=== PATIENT | female | born 1955 | race Two or more races ===

== ENCOUNTER 2021-01-31 22:19 | Inpatient (IN) | payer MEDICAID ==
[~2021-01-31] VITALS: Ht 162.6 cm; Wt 69.4 kg
[2021-01-31] MEDS ORDERED: SODIUM CHLORIDE 0.9% 1,000 ML IV ONE (23:00)
[2021-01-31 23:27] LABS: BG BASE EXCESS 4.7 mmol/L (-2.0-2.0); BG CARBOXYHEMOGLOBIN 0.8 % (0.5-1.5); BG DEOXYHEMOGLOBIN 7.3 % (0.0-5.0); BG HCO3 ACT 27.8 mmol/L (22.0-26.0); BG METHEMOGLOBIN 0.4 % (0.0-1.5); BG OXYGEN SATURATION 92.6 % (92.0-98.5); BG OXYHEMOGLOBIN 91.5 % (94.0-97.0); BG PCO2 36.4 mmHg (35.0-45.0); BG PH 7.501 (7.350-7.450); BG PO2 63.3 mmHg (75.0-100.0); BG SAMPLE SITE RIGHT RADIAL; BG TOTAL HEMOGLOBIN 16.2 g/dL (12.0-18.0); BG VENT MODE ROOM AIR
[2021-01-31 23:53] LABS: BASOPHILS % 0.5 % (0.0-2.0); EOSINOPHILS % 1.8 % (0.0-5.0); HEMATOCRIT. 50.7 % (36.0-48.0); HEMOGLOBIN. 16.2 g/dL (12.0-16.0); LYMPHOCYTES % 15.7 % (20.0-50.0); MEAN CORPUSCULAR HEMOGLOBIN 28.7 pg (28.0-32.0); MEAN CORPUSCULAR VOLUME 89.9 fL (81.0-99.0); MONOCYTES % 8.6 % (2.0-8.0); NEUTROPHILS % 73.4 % (40.0-76.0); PLATELET 442 x1000/uL (130-400); RED BLOOD CELL COUNT 5.65 mill/uL (4.2-5.4); RED CELL DISTRIBUTION WIDTH 13.6 % (11.6-14.6)
[2021-02-01] VITALS (13 sets, daily range): BP systolic 117–133; BP diastolic 67–88
[2021-02-01 00:01] LABS: INR 1.1; PROTHROMBIN TIME 11.4 sec (9.6-11.0)
[2021-02-01 01:03] LABS: CHLORIDE 96 mEq/L (98-107)
[2021-02-01] MEDS ORDERED: INSULIN REGULAR (HUMULIN R) 300UNITS/3ML VIAL IV NR (02:00)
[2021-02-01] MEDS ORDERED: CALCIUM GLUCONATE 100MG/ML 10ML VIAL IV NR (02:15)
[2021-02-01] MEDS ORDERED: METO-396 MT (06:35)
[2021-02-01] MEDS ORDERED: VIT1TABL62 PO (06:38)
[2021-02-01] MEDS ORDERED: LISI-186 MT (06:38)
[2021-02-01] MEDS ORDERED: LOVA10TA54 MT (06:38)
[2021-02-01] MEDS ORDERED: ABAC300T9 MT (06:38)
[2021-02-01] MEDS ORDERED: NON FORMULARY PATIENT HOME MED XX SCH (06:45)
[2021-02-01] MEDS ORDERED: DEXTROSE 50% WATER 50ML SYRINGE IV PRN ×2 (07:30→21:00)
[2021-02-01] MEDS: BLOOD SUGAR DIAGNOSTIC STRIP TEST SCH ×5 (08:22→21:09)
[2021-02-01] MEDS: METOPROLOL TARTRATE 50MG TABLET PO SCH ×2 (08:48→21:04)
[2021-02-01] MEDS: FAMOTIDINE 20MG TABLET PO SCH ×2 (08:48→21:04)
[2021-02-01] MEDS: INSULIN LISPRO 100 UNITS/ML SUBCUT SCH ×4 (08:50→21:00)
[2021-02-01] MEDS: ENOXAPARIN 40MG/0.4ML SYR SUBCUT SCH (08:51)
[2021-02-01] MEDS ORDERED: SODIUM POLYSTYRENE SULFONATE 15 G/60 ML BOT PO SCH (09:00)
[2021-02-01] MEDS ORDERED: PNEUMOCOCCAL 23-VAL P-SAC VAC 0.5 ML IM ONE (09:00)
[2021-02-01] MEDS: INSULIN GLARGINE UD 100 UNITS/ML SYR SUBCUT SCH ×2 (09:50→21:09)
[2021-02-01 12:11] LABS: HEMATOCRIT 44.3 % (36.0-48.0); HEMOGLOBIN 14.4 g/dL (12.0-16.0); MEAN CORPUSCULAR HEMOGLOBIN 28.6 pg (28.0-32.0); MEAN CORPUSCULAR VOLUME 87.7 fL (81.0-99.0); PLATELET 422 x1000/uL (130-400); RED BLOOD CELL COUNT 5.05 mill/uL (4.2-5.4); RED CELL DISTRIBUTION WIDTH 13.3 % (11.6-14.6)
[2021-02-01 13:21] LABS: CHLORIDE 105 mEq/L (98-107)
[2021-02-01 13:27] LABS: LDL CHOLESTEROL 52 mg/dL (5-100)
[2021-02-01 13:29] LABS: HDL CHOLESTEROL 33 mg/dL (40-59)
[2021-02-01] MEDS ORDERED: INSULIN LISPRO 100 UNITS/ML SUBCUT NR (20:57)
[2021-02-01] MEDS ORDERED: ATORVASTATIN CALCIUM 10MG TABLET PO SCH (21:00)
[2021-02-02] VITALS (7 sets, daily range): BP systolic 113–131; BP diastolic 71–85
[2021-02-02] MEDS: BLOOD SUGAR DIAGNOSTIC STRIP TEST SCH ×2 (07:30→07:50)
[2021-02-02 07:44] LABS: CLARITY URINE CLOUDY (CLEAR); COLOR URINE YELLOW (YELLOW); KETONES URINE TRACE (NEGATIVE); LEUKOCYTE ESTERASE URINE TRACE (NEGATIVE); NITRITE URINE NEGATIVE (NEGATIVE); OCCULT BLOOD URINE NEGATIVE (NEGATIVE); PROTEIN URINE 2+ (NEGATIVE); UROBILINOGEN URINE 0.2 E.U./dL (0.2-1.0)
[2021-02-02] MEDS ORDERED: METFORMIN HCL 500MG TABLET PO SCH (08:00)
[2021-02-02] MEDS: INSULIN LISPRO 100 UNITS/ML SUBCUT SCH (08:00)
[2021-02-02] MEDS: METOPROLOL TARTRATE 50MG TABLET PO SCH (09:00)
[2021-02-02] MEDS: INSULIN GLARGINE UD 100 UNITS/ML SYR SUBCUT SCH (10:14)
[2021-02-02] MEDS: ENOXAPARIN 40MG/0.4ML SYR SUBCUT SCH (10:16)
[2021-02-02] MEDS: FAMOTIDINE 20MG TABLET PO SCH (10:24)
== END 2021-02-02 13:00 | disposition home or self-care (01) | DRG 420 ==
LOC: ER 22:19 → 5EST 02-01 02:10 → EDBEDREQ 02-01 02:14 → EDBEDREQTM 02-01 02:14 → ENRESERV 02-01 03:12
PROVIDERS: ADMIT Internal Medicine; ATTEND Internal Medicine
DX: E11.65 Type 2 diabetes mellitus with hyperglycemia (principal); E44.1 Mild protein-calorie malnutrition; E78.00 Pure hypercholesterolemia, unspecified; E78.5 Hyperlipidemia, unspecified; R74.01 Elevation of levels of liver transaminase levels; E87.1 Hypo-osmolality and hyponatremia; E87.5 Hyperkalemia; F17.200 Nicotine dependence, unspecified, uncomplicated; I10 Essential (primary) hypertension; I25.10 Atherosclerotic heart disease of native coronary artery without angina pectoris; J44.9 Chronic obstructive pulmonary disease, unspecified; Z79.4 Long term (current) use of insulin; Z82.49 Family history of ischemic heart disease and other diseases of the circulatory system; Z91.14 Patient's other noncompliance with medication regimen; Z95.1 Presence of aortocoronary bypass graft; Z88.0 Allergy status to penicillin; Z79.899 Other long term (current) drug therapy; Z68.26 Body mass index [BMI] 26.0-26.9, adult
CPT/HCPCS: 36415; 36600; 71045; 80048; 80053; 80061; 81003; 82375; 82805; 82962; 83036; 83605; 83880; 84145; 84484; 85025; 85027; 90732; 93005; 99285; J0610; J1650; J1815; J7030

== ENCOUNTER 2023-01-28 18:01 | Emergency (ER) | payer MEDICARE, MEDICAID ==
[~2023-01-28] VITALS: Ht 162.6 cm; Wt 74.8 kg
[~2023-01-28 18:01] MED LIST: ABAC300T9 MT; LISI-186 MT; LOVA10TA54 MT; METO-396 MT; VIT1TABL62 PO
[2023-01-28 18:20] VITALS: BP 120/72
[2023-01-28] MEDS ORDERED: PIPERACILLIN/TAZ 3.375G PREMIX 50 ML IV ONE (21:15)
[2023-01-28] MEDS ORDERED: VANCOMYCIN 1G PREMIX 200 ML IV ONE (21:15)
[2023-01-28 21:47] LABS: BASOPHILS % 0.7 % (0.0-2.0); EOSINOPHILS % 3.3 % (0.0-5.0); HEMATOCRIT. 43.2 % (36.0-48.0); HEMOGLOBIN. 13.8 g/dL (12.0-16.0); LYMPHOCYTES % 27.4 % (20.0-50.0); MEAN CORPUSCULAR HEMOGLOBIN 28.7 pg (28.0-32.0); MEAN CORPUSCULAR VOLUME 89.8 fL (81.0-99.0); MEAN PLATELET VOLUME 8.7 fl (7.4-10.4); MONOCYTES % 6.9 % (2.0-8.0); NEUTROPHILS % 61.7 % (40.0-76.0); PLATELET 304 x1000/uL (130-400); RED BLOOD CELL COUNT 4.81 mill/uL (4.2-5.4); RED CELL DISTRIBUTION WIDTH 13.1 % (11.6-14.6)
[2023-01-28 21:55] LABS: CHLORIDE 107 mEq/L (98-107)
== END 2023-01-29 00:21 | disposition left against medical advice (07) ==
LOC: ER 18:01
DX: T81.49XA Infection following a procedure, other surgical site, initial encounter (principal); X58.XXXA Exposure to other specified factors, initial encounter; I25.10 Atherosclerotic heart disease of native coronary artery without angina pectoris; E11.9 Type 2 diabetes mellitus without complications; E78.00 Pure hypercholesterolemia, unspecified; I10 Essential (primary) hypertension
CPT/HCPCS: 36415; 80053; 83605; 85025; 87040; 96365; 96368; 99284; J2543; J3370